=== PATIENT | female | born 1995 | race Caucasian/White ===

== ENCOUNTER 2017-10-10 16:05 | Emergency (ER) | payer OTHER ==
[~2017-10-10] VITALS: Ht 160 cm; Wt 70.8 kg
[2017-10-10] MEDS ORDERED: PRENATAL + DHA1 EAC1 (16:18)
== END 2017-10-10 17:18 | disposition home or self-care (01) ==
LOC: EMR PED 16:05 → ER 16:05
DX: M25.551 Pain in right hip (principal)

== ENCOUNTER 2018-01-03 14:00 | Inpatient (IN) | payer OTHER ==
[~2018-01-03] VITALS: Ht 160 cm; Wt 75.7 kg
[~2018-01-03 14:00] MED LIST: PRENATAL + DHA1 EAC1
== END 2018-01-27 14:08 | disposition home or self-care (01) | DRG 775 ==
LOC: LDR 01-19 14:00 → OB/GYN 01-25 10:27
PROC: 0HQ9XZZ Repair Perineum Skin, External Approach (ICD-10-PCS; principal; 2018-01-25)
PROC: 10E0XZZ Delivery of Products of Conception, External Approach (ICD-10-PCS; 2018-01-25)
PROC: 4A1HXCZ Monitoring of Products of Conception, Cardiac Rate, External Approach (ICD-10-PCS; 2018-01-25)
DX: O70.0 First degree perineal laceration during delivery (principal); Z3A.40 40 weeks gestation of pregnancy; Z37.0 Single live birth; Z22.330 Carrier of Group B streptococcus

== ENCOUNTER 2018-01-24 21:43 | Outpatient (CLI) | payer OTHER | END 2018-01-24 22:20 | disposition home or self-care (01) | LOC: NST 21:43 | DX: O48.0 Post-term pregnancy (principal); Z34.03 Encounter for supervision of normal first pregnancy, third trimester ==

== ENCOUNTER 2018-01-25 02:30 | Outpatient (CLI) | payer OTHER | END 2018-01-25 10:25 | disposition still patient (30) | LOC: OBS/DEL 02:30 | DX: O48.0 Post-term pregnancy (principal); Z34.03 Encounter for supervision of normal first pregnancy, third trimester ==